=== PATIENT | male | born 1975 | race Caucasian/White ===

== ENCOUNTER 2016-11-15 14:43 | Emergency (ER) | payer MEDICAID ==
--- NOTE | 2016-11-15 15:16 | Emergency Department Record ---
History of Present Illness - General Chief Complaint: Cough Stated Complaint: HOT/COLD SORE THROAT Time Seen by Provider: 11/15/16 15:15 Source: Patient Mode of Arrival: Ambulatory Limitations: No limitations - History of Present Illness Initial Comments: The patient is here due to not feeling well for a week. He has had fevers off and on with a bad cough and ST. His family member was just diagnosed with Strep throat today in the . He denies any vomiting, or diarrhea but has had malaise and chills. MD Complaint: Cough, Fever, Sore throat Onset/Timin -: Week(s) Severity scale (1-10): 7 Consistency: Intermittent - Related Data Previous Rx's Medication Instructions Recorded Azithromycin [Zithromax] 500 mg PO DAILY #8 tablet 11/15/16 Prednisone [Prednisone 20Mg] 40 mg PO DAILY #8 tab 11/15/16 Allergies Allergy/AdvReac Type Severity Reaction Status Date / Time No Known Drug Allergies Allergy Verified 11/15/16 15:03 Travel Screening - Travel/Exposure Within Last 30 Days Have you traveled within the last 30 days?: No - Travel/Exposure Within Last Year Have you traveled outside the [place] in the last year?: No - Additonal Travel Details Have you been exposed to anyone with a communicable illness?: No - Travel Symptoms Symptom Screening: None Review of Systems Constitutional: Reports: Chills, Fever, Malaise Eyes: Denies: Eye discharge ENT: Reports: Congestion Respiratory: Reports: Cough. Denies: Dyspnea Cardiovascular: Denies: Arrhythmia, Chest pain Past Medical History - SOCIAL HISTORY Smoking Status: Current every day smoker Alcohol Use: None Drug Use: None - RESPIRATORY Hx Respiratory Disorders: No - CARDIOVASCULAR Hx Cardio Disorders: No - NEURO Hx Neuro Disorders: No - GI Hx GI Disorders: No - Hx Genitourinary Disorders: No - ENDOCRINE Hx Endocrine Disorders: No - MUSCULOSKELETAL Hx Musculoskeletal Disorders: No - PSYCH Hx Psych Problems: No - HEMATOLOGY/ONCOLOGY Hx Hematology/Oncology Disorders: No Family Medical History Any Significant Family History?: No Physical Exam - General General Appearance: Alert, Oriented x3, Cooperative, No acute distress - Head Head exam: Atraumatic, Normocephalic, Normal inspection - Eye Eye exam: Normal appearance, PERRL - ENT ENT exam: TM's normal bilaterally. negative: Normal exam, Normal orophraynx Teeth exam: Other Throat exam: Tonsillar erythema, Tonsillomegaly, Tonsillar exudate. negative: Normal inspection, R peritonsillar mass, L peritonsillar mass - Neck Neck exam: Normal inspection, Full ROM. negative: Lymphadenopathy, Meningismus , Tenderness - Respiratory Respiratory exam: Normal lung sounds bilaterally. negative: Respiratory distress - Cardiovascular Cardiovascular Exam: Regular rate, Normal rhythm, Normal heart sounds - GI/Abdominal GI/Abdominal exam: Soft, Normal bowel sounds. negative: Tenderness - Extremities Extremities exam: Normal inspection, Full ROM, Normal capillary refill. negative: Tenderness Course Vital Signs 11/15/16 15:04 Temperature 102.5 F H Pulse Rate 94 H Respiratory 18 Rate Blood Pressure 132/88 Pulse Ox 93 L - Reevaluation(s) Reevaluation #1: The patient is doing MUCH better at this time. He is still coughing and now is bring up some colored sputum. He denies any significant HAWLEY and he has no SERGEY or SOB. I explained to him that we will be treating him for walking pneumonia at home and also will place him on a short course of oral steroids. He is to return to the ER for any worsening symptoms. 11/15/16 17:31 Medical Decision Making - Data Complexity MDM Data: Labs Ordered and/or Reviewed, X-Ray Ordered and/or Reviewed - Lab Data Result diagrams: 11/15/16 15:40 11/15/16 15:40 - Radiology Data Radiology results: Image reviewed (CXR: No definite infiltrate.) Disposition Disposition: Discharge Clinical Impression: Upper respiratory infection Qualifiers: URI type: unspecified URI Qualified Code(s): J06.9 - Acute upper respiratory infection, unspecified Disposition: Home, Self-Care Condition: (1) Good Instructions: Pharyngitis (ED), Upper Respiratory Infection (ED) Additional Instructions: Please drink plenty of fluids and use Tylenol and Motrin for fever. Continue the Zithromax and Prednisone tomorrow. Please return to the ER for any worsening symptoms. Prescriptions: Azithromycin [Zithromax] 500 mg PO DAILY #8 tablet Prednisone [Prednisone 20Mg] 40 mg PO DAILY #8 tab Forms: Patient Portal Access Time of Disposition: 17:34
[2016-11-15] MEDS: ACETAMINOPHEN 500 MG TABLET PO ONE (15:48)
[2016-11-15] MEDS: IBUPROFEN 400 MG TABLET PO ONE (15:48)
[2016-11-15] MEDS: 0.9 % SODIUM CHLORIDE 1,000 ML BAG IV ONE (15:48)
[2016-11-15 15:51] LABS: BASO % 0.2 % (0-6); EOS % 1.9 % (0-6); GRAN % 78.4 % (47-80); HEMATOCRIT 44.3 % (42.0-52.0); HEMOGLOBIN 14.5 gm/dl (14.0-18.0); LYMPH % 9.1 % (16-45); MEAN CELL VOLUME 87.7 fl (81-97); MEAN CORPUSCULAR HEMOGLOBIN 28.7 pg (27-33); MEAN CORPUSCULAR HGB CONC 32.7 g/dl (32-36); MEAN PLATELET VOLUME 10.2 fl (7.4-10.4); MONO % 10.4 % (0-9); PLATELET COUNT 219 K/uL (130-400); RED BLOOD COUNT 5.05 M/uL (4.40-5.70); RED CELL DISTRIBUTION WIDTH 13.9 % (11.5-14.5)
[2016-11-15 16:08] LABS: ALB/GLOB RATIO 1.2 (1.1-1.8); ALBUMIN 4.1 gm/dL (3.5-5.0); ALKALINE PHOSPHATASE 87 U/L (38-126); ALT/SGPT 45 U/L (21-72); ANION GAP 5.1 (7-16); AST/SGOT 40 U/L (17-59); BILIRUBIN,TOTAL 0.65 mg/dL (0.2-1.3); BLOOD UREA NITROGEN 16 mg/dL (9-20); C-REACTIVE PROTEIN 7.4 mg/dL (0.0-0.9); CARBON DIOXIDE 25.9 mmol/L (22-30); EST GLOMERULAR FILTRATION RATE > 60 ml/min; GLUCOSE,RANDOM 105 mg/dL (70-110); TOTAL PROTEIN 7.5 gm/dL (6.3-8.2)
[2016-11-15] MEDS: METHYLPREDNISOLONE PF 125MG/VIAL IVP ONE (16:36)
[2016-11-15] MEDS: CEFTRIAXONE SODIUM 1 GM in 0.9 % SODIUM CHLORIDE 100ML 100 ML IVPB ONE (16:36)
[2016-11-15] MEDS: AZITHROMYCIN 500 MG TABLET PO ONE (17:08)
--- NOTE | 2016-11-17 09:49 | RADIOLOGY REPORT ---
EXAM: CHEST, TWO VIEWS HISTORY: DIFFICULTY IN BREATHING. TECHNIQUE: Frontal and lateral vies of the chest were performed. FINDINGS: The heart size is normal. There is diffuse pulmonary vascular congestion/interstitial edema. No pleural effusion. IMPRESSION: DIFFUSE PULMONARY VASCULAR CONGESTION/INTERSTITIAL EDEMA. NO PLEURAL EFFUSION. JOB NUMBER: [id number] MTDD
== END 2016-11-15 17:42 | disposition home or self-care (01) ==
LOC: ER 14:43
DX: J06.9 Acute upper respiratory infection, unspecified (principal); F17.200 Nicotine dependence, unspecified, uncomplicated; R50.9 Fever, unspecified
CPT/HCPCS: 71020; 80053; 83880; 84484; 85025; 85027; 86140; 93005; 93010; 94640; 96365; 96375; 99284; J2930; J7030

== ENCOUNTER 2016-11-15 20:22 | Emergency (ER) | payer MEDICAID ==
[2016-11-15 20:50] LABS: BASO % 0.2 % (0-6); EOS % 0.3 % (0-6); HEMATOCRIT 45.5 % (42.0-52.0); HEMOGLOBIN 15.4 gm/dl (14.0-18.0); MEAN CELL VOLUME 87.7 fl (81-97); MEAN CORPUSCULAR HEMOGLOBIN 29.7 pg (27-33); MEAN CORPUSCULAR HGB CONC 33.8 g/dl (32-36); MEAN PLATELET VOLUME 10.1 fl (7.4-10.4); MONO % 3.2 % (0-9); PLATELET COUNT 230 K/uL (130-400); RED BLOOD COUNT 5.19 M/uL (4.40-5.70); WHITE BLOOD COUNT W/O DIFF 16.8 K/uL (4.2-12.2)
[2016-11-15 21:00] LABS: ALB/GLOB RATIO 1.2 (1.1-1.8); ALBUMIN 4.2 gm/dL (3.5-5.0); ALKALINE PHOSPHATASE 86 U/L (38-126); ALT/SGPT 46 U/L (21-72); ANION GAP 5.2 (7-16); AST/SGOT 41 U/L (17-59); BILIRUBIN,TOTAL 0.64 mg/dL (0.2-1.3); BLOOD UREA NITROGEN 14 mg/dL (9-20); CARBON DIOXIDE 24.8 mmol/L (22-30); EST GLOMERULAR FILTRATION RATE > 60 ml/min; GLUCOSE,RANDOM 159 mg/dL (70-110); TOTAL PROTEIN 7.7 gm/dL (6.3-8.2)
[2016-11-15 21:13] LABS: TROPONIN I < 0.012 ng/mL (0.00-0.034)
[2016-11-15] MEDS: MAGNESIUM HYDROXIDE/AL HYDROX 30 ML, LIDOCAINE VISC 2% 200 MG PO ONE ×2 (21:22)
--- NOTE | 2016-11-15 21:24 | Emergency Department Record ---
History of Present Illness - General Chief Complaint: Recheck - Other Stated Complaint: SOB Time Seen by Provider: 11/15/16 20:27 Source: Patient Mode of arrival: Ambulatory Limitations: No limitations - History of Present Illness Initial Comments: 41 yo male presents with a cough, sore throat for several days. Dr Nguyễn called the patient back for a recheck after final chest XR was read as possible interstitial fluid in the lungs. The plan was to check cardiac labs and EKG. The patient has had the symptoms for several days. He is coughing up yellow sputum. No current fever. He was started on antibiotics and steroids. He does smoke. No history of CAD. -: Days(s) Initial Visit For: Other Returns Today for: Other Symptoms Since Prior Visit: No new symptoms Associated Symptoms: Nausea, Shortness of breath, Other - Related Data Previous Rx's Medication Instructions Recorded Azithromycin [Zithromax] 500 mg PO DAILY #8 tablet 11/15/16 Prednisone [Prednisone 20Mg] 40 mg PO DAILY #8 tab 11/15/16 Allergies Allergy/AdvReac Type Severity Reaction Status Date / Time No Known Drug Allergies Allergy Verified 11/15/16 15:03 Travel Screening - Travel/Exposure Within Last 30 Days Have you traveled within the last 30 days?: No Review of Systems Constitutional: Reports: Fever (subjective). Denies: Chills, Malaise, Weakness Eyes: Denies: Eye discharge, Eye pain, Photophobia ENT: Reports: Congestion, Throat pain. Denies: Ear pain, Epistaxis, Hearing loss Respiratory: Reports: Cough, Wheezes Cardiovascular: Denies: Chest pain, Palpitations, Syncope Endocrine: Denies: Fatigue, Polydipsia, Polyuria Gastrointestinal: Denies: Abdominal pain, Diarrhea, Nausea, Vomiting Genitourinary: Denies: Dysuria, Frequency, Hematuria, Urgency Musculoskeletal: Denies: Arthralgia, Back pain, Joint swelling, Myalgia, Neck pain Skin: Denies: Bruising, Change in color, Rash Neurological: Denies: Headache, Numbness, Weakness Psychiatric: Denies: Anxiety Hematological/Lymphatic: Denies: Blood Clots, Easy bleeding, Easy bruising, Swollen glands Past Medical History - SOCIAL HISTORY Smoking Status: Heavy tobacco smoker (>10/day) Alcohol Use: Rare Drug Use: None - RESPIRATORY Hx Respiratory Disorders: No - CARDIOVASCULAR Hx Cardio Disorders: No - NEURO Hx Neuro Disorders: No - GI Hx GI Disorders: No - Hx Genitourinary Disorders: No - ENDOCRINE Hx Endocrine Disorders: No - MUSCULOSKELETAL Hx Musculoskeletal Disorders: No - PSYCH Hx Psych Problems: No - HEMATOLOGY/ONCOLOGY Hx Hematology/Oncology Disorders: No Family Medical History Any Significant Family History?: No Family Hx Comment (NOT TO BE USED IN PLACE OF ITEMS BELOW): denies Physical Exam - General General Appearance: Alert, Oriented x3, Cooperative, No acute distress Limitations: No limitations - Head Head exam: Atraumatic, Normal inspection - Eye Eye exam: Normal appearance, PERRL. negative: Conjunctival injection, Periorbital swelling - ENT ENT exam: Mucous membranes moist, TM's normal bilaterally. negative: Normal exam, Normal orophraynx Ear exam: Normal external inspection. negative: External canal tenderness Nasal Exam: Normal inspection. negative: Discharge, Sinus tenderness Mouth exam: Normal external inspection, Tongue normal Teeth exam: Normal inspection. negative: Dental caries Throat exam: Tonsillar erythema. negative: Tonsillar exudate, R peritonsillar mass - Neck Neck exam: Normal inspection. negative: Lymphadenopathy - Respiratory Respiratory exam: Decreased breath sounds, Prolonged expiratory, Rhonchi, Wheezes. negative: Normal lung sounds bilaterally, Accessory muscle use, Respiratory distress - Cardiovascular Cardiovascular Exam: Regular rate, Normal rhythm, Normal heart sounds - GI/Abdominal GI/Abdominal exam: Soft - Rectal Rectal exam: Deferred - exam: Deferred - Extremities Extremities exam: Normal inspection, Full ROM, Normal capillary refill. negative: Tenderness - Back Back exam: Reports: Normal inspection, Full ROM. Denies: Muscle spasm, Rash noted, Tenderness - Neurological Neurological exam: Alert, Normal gait, Oriented X3 - Psychiatric Psychiatric exam: Normal affect, Normal mood. negative: Agitated, Anxious - Skin Skin exam: Dry, Intact, Normal color, Warm Course Vital Signs 11/15/16 20:31 Temperature 98.4 F Pulse Rate 79 Respiratory 18 Rate Blood Pressure 145/84 Pulse Ox 94 L - Reevaluation(s) Reevaluation #1: EKG 20:36 EKG NSR rate 74 Intervals normal, [place] Normal, ST normal 11/15/16 21:25 Reevaluation #2: No acute changes on the labs with normal BNP and Troponin. The symptoms are consistent with URI with wheezing. NO signs of CHF. 11/15/16 21:26 Reevaluation #3: Combivent inhaler provided and instructed in the ED 11/15/16 21:45 Reevaluation #4: On recheck the patient is doing better after the treatment We discussed the wheezing and home treatment The Rt taught the Combivent at the bed side. 11/15/16 21:46 Medical Decision Making - Lab Data Result diagrams: 11/15/16 20:40 11/15/16 20:40 Lab Results 11/15/16 11/15/16 Range/Units 20:40 20:40 WBC 16.8 H (4.2-12.2) K/uL RBC 5.19 (4.40-5.70) M/uL Hgb 15.4 (14.0-18.0) gm/dl Hct 45.5 (42.0-52.0) % MCV 87.7 (81-97) fl MCH 29.7 (27-33) pg MCHC 33.8 (32-36) g/dl RDW 14.0 (11.5-14.5) % Plt Count 230 (130-400) K/uL MPV 10.1 (7.4-10.4) fl Neutrophils % 90.0 H (47-80) % Band Neutrophils % 1.0 (0-5) % Lymphocytes % 7.0 L (16-45) % Monocytes % 3.2 (0-9) % Eosinophils % 0.3 (0-6) % Basophils % 0.2 (0-6) % Lymphocytes 7.0 L (16-45) % Monocytes 2.0 (0-9) % Basophils 0.0 (0-6) % Eosinophil Count 0.0 (0-6) % Sodium 138 (136-145) mmol/L Potassium 4.4 (3.5-5.1) mmol/L Chloride 108 H (98-107) mmol/L Carbon Dioxide 24.8 (22-30) mmol/L Anion Gap 5.2 L (7-16) BUN 14 (9-20) mg/dL Creatinine 1.0 (0.66-1.25) mg/dL Estimated GFR > 60 ml/min Random Glucose 159 H (70-110) mg/dL Calcium 9.0 (8.5-10.1) mg/dL Total Bilirubin 0.64 (0.2-1.3) mg/dL AST 41 (17-59) U/L ALT 46 (21-72) U/L Alkaline Phosphatase 86 (38-126) U/L Troponin I < 0.012 (0.00-0.034) ng/mL NT-Pro-B Natriuret Pep 100.00 (<125) pg/mL Total Protein 7.7 (6.3-8.2) gm/dL Albumin 4.2 (3.5-5.0) gm/dL Globulin 3.5 (1.4-4.8) gm/dL Albumin/Globulin Ratio 1.2 (1.1-1.8) Disposition Disposition: Discharge Clinical Impression: Bronchitis Disposition: Home, Self-Care Condition: (1) Good Instructions: Acute Bronchitis (ED) Additional Instructions: Return if worse, fever, short of breath Take the Antibiotics, Steroids, and breathing treatments as ordered. Forms: Patient Portal Access Time of Disposition: 21:46
[2016-11-15] MEDS: IPRATROPIUM/ALBUTEROL (0.5MG/3MG) NEB INH ONE (21:33)
[2016-11-15] MEDS ORDERED: IPRATROPIUM/ALBUTEROL 4 GM INH INH ONE (21:54)
[2016-11-15] MEDS: IPRATROPIUM/ALBUTEROL 4 GM INH INH PRN (21:57)
== END 2016-11-15 21:57 | disposition home or self-care (01) ==
LOC: ER 20:22
DX: J20.9 Acute bronchitis, unspecified (principal); F17.200 Nicotine dependence, unspecified, uncomplicated
CPT/HCPCS: 80053; 83880; 84484; 85027; 93005; 93010; 94640

== ENCOUNTER 2017-01-08 14:21 | Emergency (ER) | payer MEDICAID ==
[2017-01-08] MEDS ORDERED: PROPARACAINE HCL OPTH 15ML BTL OPTH ONE (14:37)
[2017-01-08] MEDS: PROPARACAINE HCL OPTH 15ML BTL OPTH ONE (14:39)
--- NOTE | 2017-01-08 14:51 | Emergency Department Record ---
History of Present Illness - General Chief complaint: Eye Problem Stated complaint: SOMETHING IN LEFT EYE Time Seen by Provider: 01/08/17 14:37 Source: Patient Mode of Arrival: Ambulatory Limitations: No limitations - History of Present Illness Initial comments: 41 yo male presents with left eye redness and a FB feeling. He was grinding metal 2 days ago and had the FB sensation begin. He was seen at [facility] yesterday. He states they found a FB and removed it as well as used the jose to remove residual material. Today he states he has a sensation in the upper middle eye that is similar to the FB feeling. No vision changes. No pus. No fever. No contact use. MD chief complaint: Eye pain, Eye redness, Eye injury, Foreign body Onset/Timin -: Days(s) Onset Description: Sudden Location: Left eye Place: Home Severity: Moderate Severity scale (1-10): 2 If Pain, Quality: Aching Consistency: Constant - Related Data Visual acuity (L) = 20/: 25 Visual acuity (R) = 20/: 50 Year of Tetanus Vaccination: 2014 Patient Tetanus UTD (within 5 yrs): Yes Home Medications Medication Instructions Recorded Confirmed Last Taken Polymyxin B Sulf/Trimethoprim 10 ml OP ASDIR 01/08/17 01/08/17 1 Day Ago [Polytrim Eye Drops] ~01/07/17 Propylene Glycol [Systane Balance] 10 ml OP ASDIR 01/08/17 01/08/17 1 Day Ago ~01/07/17 Allergies Allergy/AdvReac Type Severity Reaction Status Date / Time No Known Drug Allergies Allergy Verified 01/08/17 14:32 Travel Screening - Travel/Exposure Within Last 30 Days Have you traveled within the last 30 days?: No - Travel/Exposure Within Last Year Have you traveled outside the [place] in the last year?: No - Additonal Travel Details Have you been exposed to anyone with a communicable illness?: No - Travel Symptoms Symptom Screening: None Review of Systems Constitutional: Denies: Chills, Fever, Malaise Eyes: Reports: Eye pain. Denies: Eye discharge, Photophobia, Vision change ENT: Denies: Congestion, Throat pain Respiratory: Denies: Cough, Dyspnea Cardiovascular: Denies: Chest pain Endocrine: Denies: Fatigue Gastrointestinal: Denies: Diarrhea, Nausea, Vomiting Genitourinary: Denies: Dysuria, Frequency Musculoskeletal: Denies: Arthralgia, Myalgia Skin: Denies: Bruising, Change in color, Rash Neurological: Denies: Headache Psychiatric: Denies: Anxiety Hematological/Lymphatic: Denies: Blood Clots, Easy bleeding, Easy bruising, Swollen glands Past Medical History - SOCIAL HISTORY Smoking Status: Light tobacco smoker (<10/day) Alcohol Use: None Drug Use: None - RESPIRATORY Hx Respiratory Disorders: No - CARDIOVASCULAR Hx Cardio Disorders: No - NEURO Hx Neuro Disorders: No - GI Hx GI Disorders: No - Hx Genitourinary Disorders: No - ENDOCRINE Hx Endocrine Disorders: No - MUSCULOSKELETAL Hx Musculoskeletal Disorders: No - PSYCH Hx Psych Problems: No - HEMATOLOGY/ONCOLOGY Hx Hematology/Oncology Disorders: No Family Medical History Any Significant Family History?: Yes Family Hx Comment (NOT TO BE USED IN PLACE OF ITEMS BELOW): denies Physical Exam - General General Appearance: Alert, Oriented x3, Cooperative, No acute distress Limitations: No limitations - Head Head exam: Normocephalic, Normal inspection - Eye Eye exam: PERRL, Conjunctival injection (mild on the left), EOMI. negative: Normal appearance, Periorbital swelling, Periorbital tenderness Pupils: Normal accommodation. negative: Irregular, Unequal Visual acuity (L) = 20/: 25 Visual acuity (R) = 20/: 50 Image of Eyes: 1 - 1mm area of stain uptake without any visible FB. The remainder of the surface was free of stain uptake on slip lamp, the upper lid was everted, no FB and normal on inspecton of the underside of the lid, no streaking on the conrnea to suggest lid FB. AC clear on slit lamp without blood or haziness. - ENT ENT exam: Normal exam Ear exam: Normal external inspection Nasal Exam: Normal inspection Mouth exam: Normal external inspection - Neck Neck exam: Normal inspection - Rectal Rectal exam: Deferred - exam: Deferred - Neurological Neurological exam: Alert, Oriented X3. negative: CN II-XII intact - Psychiatric Psychiatric exam: Normal affect, Normal mood - Skin Skin exam: Dry, Intact, Normal color, Warm Course Vital Signs 07/29/17 14:24 Temperature 98.4 F Pulse Rate 89 Respiratory 20 Rate Blood Pressure 142/93 Pulse Ox 97 - Reevaluation(s) Reevaluation #1: 01/08/17 14:56 The [facility] is 20/25 in the involved eye SLit lamp examination performed without any visualized FB Clear AC I believe his irritation is related to the FB then office procedure which would be expected one day later. No sign of retained FB or acute complication from yesterday's [facility] procedure to remove the FB Disposition Disposition: Discharge Clinical Impression: Corneal abrasion, left Qualifiers: Encounter type: initial encounter Qualified Code(s): S05.02XA - Injury of conjunctiva and corneal abrasion without foreign body, left eye, initial encounter Disposition: Home, Self-Care Condition: (1) Good Instructions: Corneal Abrasion (ED) Additional Instructions: Return if fever, worse, changes in vision Call ophthalmology for follow up as well. You may call the oncall number for LO as well if you have questions Forms: Patient Portal Access Time of Disposition: 14:51 Quality - Quality Measures Quality Measures: N/A - Blood Pressure Screening View Details: Yes Blood Pressure Classification: Hypertensive Reading Systolic Measurement: 142 Diastolic Measurement: 93 Screening for High Blood Pressure: < Pre-Hypertensive BP, F/U Documented > [ G8950] Pre-Hypertensive Follow-up Interventions: Referral to alternative/primary care provider.
== END 2017-01-08 14:55 | disposition home or self-care (01) ==
LOC: ER 14:21
DX: S05.02XA Injury of conjunctiva and corneal abrasion without foreign body, left eye, initial encounter (principal); W22.8XXA Striking against or struck by other objects, initial encounter
CPT/HCPCS: 99283

== ENCOUNTER 2017-04-06 09:31 | Emergency (ER) | payer SELFPAY ==
--- NOTE | 2017-04-06 09:47 | Emergency Department Record ---
History of Present Illness - General Chief complaint: ENT Stated complaint: EAR PAIN Time Seen by Provider: 04/06/17 09:38 Source: Patient Mode of Arrival: Ambulatory Limitations: No limitations - History of Present Illness Initial comments: The patient is here due to not feeling well for a day. He did have nausea and some vomiting yesterday but that has resolved. Now today he has a ST and nasal congestion. There is no HAWLEY, cough, fever, SOB or abdominal pain but his ears do feel full. MD complaint: Sore throat Onset/Timin -: Days(s) Location: Throat Consistency: Constant Improves with: None Worsens with: Swallowing Associated Symptoms: Cough, Sore throat - Related Data Previous Rx's Medication Instructions Recorded Cetirizine HCl/Pseudoephedrine 1 each PO BID #14 tab.er.12h 04/06/17 [Zyrtec-D Tablet] Fluticasone Propionate [Flonase] 2 spray EACH NARES DAILY #1 bottle 04/06/17 Prednisone [Prednisone 20Mg] 40 mg PO DAILY #8 tab 04/06/17 Allergies Allergy/AdvReac Type Severity Reaction Status Date / Time No Known Drug Allergies Allergy Verified 01/08/17 14:32 Travel Screening - Travel/Exposure Within Last 30 Days Have you traveled within the last 30 days?: No Review of Systems Constitutional: Denies: Chills, Fever ENT: Denies: Congestion Respiratory: Denies: Cough, Dyspnea Past Medical History - SOCIAL HISTORY Smoking Status: Heavy tobacco smoker (>10/day) Alcohol Use: None Drug Use: None - RESPIRATORY Hx Respiratory Disorders: No - CARDIOVASCULAR Hx Cardio Disorders: No - NEURO Hx Neuro Disorders: No - GI Hx GI Disorders: No - Hx Genitourinary Disorders: No - ENDOCRINE Hx Endocrine Disorders: No - MUSCULOSKELETAL Hx Musculoskeletal Disorders: No - PSYCH Hx Psych Problems: No - HEMATOLOGY/ONCOLOGY Hx Hematology/Oncology Disorders: No Family Medical History Any Significant Family History?: No Family Hx Comment (NOT TO BE USED IN PLACE OF ITEMS BELOW): denies Physical Exam - General General Appearance: Alert, Oriented x3, Cooperative, No acute distress - Head Head exam: Atraumatic, Normocephalic, Normal inspection - Eye Eye exam: Normal appearance, PERRL - ENT ENT exam: TM's normal bilaterally. negative: Normal exam, Normal orophraynx Nasal Exam: Normal inspection. negative: Active bleeding, Discharge Throat exam: Tonsillar erythema. negative: Normal inspection, Tonsillomegaly, Tonsillar exudate, R peritonsillar mass, L peritonsillar mass - Neck Neck exam: Normal inspection, Full ROM. negative: Lymphadenopathy, Meningismus , Tenderness - Respiratory Respiratory exam: Normal lung sounds bilaterally. negative: Respiratory distress - Cardiovascular Cardiovascular Exam: Regular rate, Normal rhythm, Normal heart sounds - GI/Abdominal GI/Abdominal exam: Soft, Normal bowel sounds. negative: Tenderness - Extremities Extremities exam: Normal inspection, Full ROM, Normal capillary refill. negative: Tenderness - Neurological Neurological exam: Alert, Normal gait. negative: Abnormal gait, Motor sensory deficit - Skin Skin exam: negative: Rash Course Vital Signs 04/06/17 09:33 Temperature 98.1 F Pulse Rate 89 Respiratory 18 Rate Blood Pressure 128/84 Pulse Ox 97 - Reevaluation(s) Reevaluation #1: I did discuss the issues with the patient and the neg Strep. We did discuss the dx of a viral sore throat and the need for F/U. 04/06/17 10:05 Medical Decision Making - Data Complexity MDM Data: Labs Ordered and/or Reviewed (Strep screen: Neg.) Disposition Disposition: Discharge Clinical Impression: Pharyngitis Qualifiers: Pharyngitis/tonsillitis etiology: unspecified etiology Qualified Code(s): J02.9 - Acute pharyngitis, unspecified Disposition: Home, Self-Care Condition: (1) Good Instructions: Pharyngitis (ED) Additional Instructions: Please take Tylenol for pain along with the Zyrtec-d, Flonase and Prednisone. Please see your PCP early next week if not better or return to the ER if worse. Prescriptions: Cetirizine HCl/Pseudoephedrine [Zyrtec-D Tablet] 1 each PO BID #14 tab.er.12h Fluticasone Propionate [Flonase] 2 spray EACH NARES DAILY #1 bottle Prednisone [Prednisone 20Mg] 40 mg PO DAILY #8 tab Forms: Patient Portal Access Time of Disposition: 10:08 Quality - Quality Measures Quality Measures: N/A - Blood Pressure Screening View Details: Yes Does Patient Have Any of the Following: No Blood Pressure Classification: Pre-Hypertensive BP Reading Systolic Measurement: 128 Diastolic Measurement: 84 Screening for High Blood Pressure: < Pre-Hypertensive BP, F/U Documented > [ G8950] Pre-Hypertensive Follow-up Interventions: Referral to alternative/primary care provider.
== END 2017-04-06 10:00 | disposition home or self-care (01) ==
LOC: ER 09:31
DX: J02.9 Acute pharyngitis, unspecified (principal); R11.2 Nausea with vomiting, unspecified; F17.210 Nicotine dependence, cigarettes, uncomplicated
CPT/HCPCS: 87880; 99282